=== PATIENT | female | born 1995 | race Asian ===

== ENCOUNTER 2024-08-25 22:26 | Emergency (ER) | payer BC ==
[~2024-08-25] VITALS: Ht 152.4 cm; Wt 49.9 kg
[2024-08-26] MEDS ORDERED: NAPR-1009 PO (00:44)
[2024-08-26] MEDS ORDERED: IBUPROFEN 400 MG TABLET ONE (00:45)
[2024-08-26] MEDS: IBUPROFEN 400 MG TABLET PO ONE (00:47)
[2024-08-26 01:08] VITALS: BP 114/68; O2SAT 100
== END 2024-08-26 01:09 | disposition home or self-care (01) ==
LOC: ER 22:26
DX: S86.111A Strain of other muscle(s) and tendon(s) of posterior muscle group at lower leg level, right leg, initial encounter (principal); M79.661 Pain in right lower leg; W18.39XA Other fall on same level, initial encounter; Y93.89 Activity, other specified; Y92.89 Other specified places as the place of occurrence of the external cause; Y99.8 Other external cause status
CPT/HCPCS: A4606; A4663